=== PATIENT | male | born 1985 | race Caucasian/White ===

== ENCOUNTER 2021-03-29 19:56 | Emergency (ER) | payer SELFPAY ==
[~2021-03-29] VITALS: Ht 193 cm; Wt 91.0 kg
[2021-03-29 21:58] LABS: BASOPHILS % 0.2 % (0.0-2.0); EOSINOPHILS % 0.2 % (0.0-5.0); HEMATOCRIT. 38.7 % (42.0-52.0); HEMOGLOBIN. 12.6 g/dL (14.0-18.0); LYMPHOCYTES % 20.6 % (20.0-50.0); MEAN CORPUSCULAR VOLUME 95.2 fL (80.0-94.0); MEAN PLATELET VOLUME 8.1 fl (7.4-10.4); MONOCYTES % 3.5 % (2.0-8.0); NEUTROPHILS % 75.5 % (40.0-76.0); PLATELET 313 x1000/uL (130-400); RED BLOOD CELL COUNT 4.06 mill/uL (4.7-6.1); RED CELL DISTRIBUTION WIDTH 13.7 % (11.6-14.6)
[2021-03-29] MEDS ORDERED: NALO4SPR BOTHNSTRLS (22:05)
[2021-03-29 22:08] LABS: CHLORIDE 108 mEq/L (98-107)
[2021-03-29 22:11] LABS: ETHANOL BLOOD < 10 mg/dL
[2021-03-29 22:30] VITALS: BP 108/58
[2021-03-29 23:09] LABS: CLARITY URINE CLEAR (CLEAR); COLOR URINE YELLOW (YELLOW); KETONES URINE TRACE (NEGATIVE); LEUKOCYTE ESTERASE URINE NEGATIVE (NEGATIVE); NITRITE URINE NEGATIVE (NEGATIVE); OCCULT BLOOD URINE NEGATIVE (NEGATIVE); PH URINE 5.5 (4.5-8.0); PROTEIN URINE NEGATIVE (NEGATIVE); SPECIFIC GRAVITY URINE 1.013 (1.005-1.030)
[2021-03-29 23:22] LABS: *AMPHETAMINES SCREEN URINE NEGATIVE (NEGATIVE)
[2021-03-29 23:23] LABS: *BARBITURATES SCREEN URINE NEGATIVE (NEGATIVE); *BENZODIAZEPINES SCREEN URINE NEGATIVE (NEGATIVE); *COCAINE SCREEN URINE PRESUMTIVE POSITIVE (NEGATIVE); CANNABINOID URINE SCREEN PRESUMTIVE POSITIVE (NEGATIVE); METHADONE URINE SCREEN NEGATIVE (NEGATIVE); OPIATES URINE SCREEN NEGATIVE (NEGATIVE); PHENCYCLIDINE URINE SCREEN NEGATIVE (NEGATIVE)
== END 2021-03-29 23:06 | disposition home or self-care (01) ==
LOC: ER 19:56
DX: T50.901A Poisoning by unspecified drugs, medicaments and biological substances, accidental (unintentional), initial encounter (principal); Y92.9 Unspecified place or not applicable; I49.9 Cardiac arrhythmia, unspecified
CPT/HCPCS: 36415; 80053; 80305; 80307; 80320; 80329; 81003; 85025; 93005; 99284; G0480